=== PATIENT | male | born 1955 | race Caucasian/White ===

== ENCOUNTER 2021-05-21 05:18 | Day surgery (SDC) | payer BC, MEDICARE ==
[2021-05-21] MEDS ORDERED: Midazolam 1 MG/ML 2 ML SDV IV ONE ×6 (05:19→06:38)
[2021-05-21] MEDS ORDERED: fentaNYL 100 MCG/2 ML SDV IV ONE ×3 (05:19→06:30)
[2021-05-21] MEDS ORDERED: Midazolam 1 MG/ML 2 ML SDV ONE (05:52)
[2021-05-21] MEDS ORDERED: fentaNYL 100 MCG/2 ML SDV ONE (05:52)
[2021-05-21] MEDS ORDERED: Dextrose 5%-0.45% NaCl 1,000 ML IV SCH (06:00)
--- NOTE | 2021-05-21 08:36 | OR ---
DATE: 05/21/2021 PROCEDURE: Total colonoscopy. INSTRUMENT USED: [id number]-[id number] Olympus video colonoscope. PREMEDICATIONS: Fentanyl 100 mcg intravenous, Versed 3.5 mg intravenous, nasal O2 cannula. The procedure was done under pulse oximetry, BP recording, and monitoring analyst. INDICATION: The patient with rectal bleeding. Colonoscopy examination is done for detection of any polypoid lesions and removal, endoscopic hemostasis therapy if needed. DESCRIPTION OF PROCEDURE: Initial rectal exam showed BPH. Rigid anoscopy showed small internal hemorrhoids without bleeding from them. The colonoscope was passed with ease. Few scattered diverticula were noted in the distal left colon. The scope was passed with ease up to the ileocecal area. Photographs were taken of the normal-appearing cecum identified by landmarks of appendiceal orifice and double-bulged ileocecal folds. No bleeding was noted from any of the visualized areas at the commencement of the examination. The bowel preparation was found to be adequate, [place] scale 3 in all the regions, total score 9. No stricture. No vascular ectasia. No large isolated ulcerations seen. No evidence of diffuse inflammatory bowel disease in the form of friability, contact bleeding, or ulcerations. No polyp or tumor mass identified. Probing the proximal sides of folds and flexures using adequate distention and clearing up the stool, withdrawal of the scope was made, cecum to rectum time over 6 minutes. No bleeding was noted from any of the visualized areas at the completion of examination. IMPRESSION: 1. Internal hemorrhoids. 2. Diverticulosis. The patient tolerated the procedure well. [facility] /[id number]
== END 2021-05-21 08:51 | disposition home or self-care (01) ==
LOC: DL.ENDO 05:18
PROVIDERS: ATTEND Internal Medicine Gastroenterology
DX: K57.31 Diverticulosis of large intestine without perforation or abscess with bleeding (principal); K64.8 Other hemorrhoids; N40.0 Benign prostatic hyperplasia without lower urinary tract symptoms
CPT/HCPCS: 45378; J2250; J3010; J7042